=== PATIENT | female | born 1995 | race Caucasian/White ===

== ENCOUNTER 2018-04-21 16:44 | Emergency (ER) | payer MEDICAID ==
[~2018-04-21] VITALS: Ht 165.1 cm; Wt 78.9 kg
[2018-04-21 16:50] VITALS: BP 131/83; Ht 165.1 cm; Wt 78.9 kg
== END 2018-04-21 17:55 | disposition home or self-care (01) ==
LOC: ED 16:44
DX: J03.90 Acute tonsillitis, unspecified (principal); R59.0 Localized enlarged lymph nodes